=== PATIENT | male | born 1970 ===

== ENCOUNTER 2023-01-02 06:00 | Day surgery (SDC) | payer OTHER | END 2023-01-02 10:30 | disposition home or self-care (01) | LOC: AMB-ENDOS 06:00 | PROVIDERS: ATTEND Colon & Rectal Surgery | DX: D12.2 Benign neoplasm of ascending colon (principal); K57.30 Diverticulosis of large intestine without perforation or abscess without bleeding; K64.2 Third degree hemorrhoids; R19.4 Change in bowel habit ==